=== PATIENT | male | born 1950 | race Caucasian/White ===

== ENCOUNTER 2020-03-06 09:00 | Outpatient (RCR) | payer MEDICARE, OTHER, SELFPAY ==
--- NOTE | 2020-02-14 16:23 | STOPEVAL ---
SPEECH THERAPY INITIAL EVALUATION: Thank you for referring Jonny Mccarthy to [facility].? The patient is scheduled to be seen for therapy? X2/week for 4 weeks. Please review, sign, date and return this plan of care JANICE. I agree with and certify that the following plan of care is medically necessary. Referring Physician Date Attending Provider: PHYSICIAN NOT ON STAFF *ST Outpatient Evaluation Start: 02/14/20 09:18 Freq: Status: Active Protocol: Document 02/14/20 09:18 KRISHNA (Rec: 02/14/20 10:23 BECRUSHRT [email or web address]) Therapy Assessment Status Assessment Status Assessment Status Evaluation Outpatient Past Medical History Past Medical History Source of Past Medical History Patient,Family/Significant Other Neurological History Hx Cerebrovascular Accident (CVA) Yes: 01-26-20 Cardiovascular History Hx Hypertension Yes Hematological History Hx Leukemia Yes: CML Endocrine History Hx Endocrine Disorders No Significant History HEENT History Hx Eye Surgery Yes: repaired detached retina Psychosocial History Hx Anxiety Yes Hx Depression Yes Pain History Effective Methods of Pain Control pain issues with CML treatment variable but not recently Other History Hx Cancer Yes: CML & bladder CA Evaluation Information Problem Diagnosis CVA Onset 01.26.20 Pain Assessment Timing of Pain Assessment Timing of Pain Assessment Assessment Self Report Self Report Pain Level 0 Pain Score Pain Score 0: Self Report Language Evaluation Auditory Comprehension Complex Yes/No Questions (% Accuracy (0- 100 100)) Auditory Comprehension of Complex 100 Directives (% Accuracy (0-100)) Auditory Comprehension of Simple 80 Paragraphs (% Accuracy (0-100)) Auditory Comprehension of Moderate 100 Paragraphs (% Accuracy (0-100)) Auditory Comprehension of Complex 100 Paragraphs (% Accuracy (0-100)) Response Latency Mild Deficits Overall Auditory Comprehension Ability WNL Reading Comprehension Comprehension of Complex Paragraphs (% 100 Accuracy (0-100)) Comprehension of Functional Reading No Impairments Materials Response Latency Mild Deficits Overall Reading Comprehension Ability WNL Verbal Expression Automatic Speech Ability WFL [place] Speech WFL Sentence Imitation (% Accuracy (0-100)) 100 Automatic Cued Speech (% Accuracy (0-100 100 )) Open Ended Cued Speech (% Accuracy (0- 100 100)) Confrontational Naming (% Accuracy (0- 92 100))
--- NOTE | 2020-03-07 10:39 | STOPEVAL ---
SPEECH THERAPY DISCHARGE: Thank you for referring Jonny Mccarthy to [facility].?The pt has completed 6 speech therapy visits. Pt has achieved all goals and will be discharged from treatment at this time. Please review, sign, date and return this discharge JANICE. I agree with and certify that the following plan of care is medically necessary. Referring Physician Date Attending Provider: PHYSICIAN NOT ON STAFF Referring Provider: * Outpatient Discharge Note: Start: 02/14/20 09:18 Freq: Status: Active Protocol: Document 03/06/20 09:00 KRISHNA (Rec: 03/06/20 16:59 BECHERERT [email or web address]) Therapy Assessment Status Assessment Status Assessment Status Discharge Outpatient Past Medical History Past Medical History Source of Past Medical History Patient,Family/Significant Other Neurological History Hx Cerebrovascular Accident (CVA) Yes: 01-26-20 Cardiovascular History Hx Hypertension Yes Hematological History Hx Leukemia Yes: CML Endocrine History Hx Endocrine Disorders No Significant History HEENT History Hx Eye Surgery Yes: repaired detached retina Psychosocial History Hx Anxiety Yes Hx Depression Yes Pain History Effective Methods of Pain Control pain issues with CML treatment variable but not recently Other History Hx Cancer Yes: CML & bladder CA Pain Assessment Timing of Pain Assessment Timing of Pain Assessment Assessment Self Report Self Report Pain Level 0 Pain Score Pain Score 0: Self Report Language Evaluation Auditory Comprehension Complex Yes/No Questions (% Accuracy (0- 100 100)) Auditory Comprehension of Complex 100 Directives (% Accuracy (0-100)) Auditory Comprehension of Simple 100 Paragraphs (% Accuracy (0-100)) Auditory Comprehension of Complex 90 Paragraphs (% Accuracy (0-100)) Response Latency No Impairments Overall Auditory Comprehension Ability WNL Verbal Expression Automatic Speech Ability WFL [place] Speech WFL Sentence Formation in Spontaneous WFL Conversation Connected Speech WFL Response Latency Mild Deficits Factors Limiting Verbal Function Aphasia Overall Verbal Expression Ability WFL Comments Related to Verbal Expression Pt is able to independently utilize compensatory strategies for word finding Verbal Expression Activity Verbal Expression Sentence Formation Given a Stimulus Word 100 (% Accuracy (0-100)) Sentence Formation in Spontaneous No Impairments Conversation Connected Speech No Impairments Re
== END 2020-03-07 14:50 | disposition home or self-care (01) ==
LOC: ANHST 09:00
DX: Z86.73 Personal history of transient ischemic attack (TIA), and cerebral infarction without residual deficits (principal); R48.8 Other symbolic dysfunctions
CPT/HCPCS: 92507; 92523